=== PATIENT | female | born 1960 | race Caucasian/White ===

== ENCOUNTER 2017-05-30 08:25 | Outpatient (CLI) | payer OTHER ==
[2017-05-30 11:57] LABS: BASOPHILS # (AUTO) 0.1 10^3/uL (0.0-0.1); EOSINOPHILS # (AUTO) 0.1 10^3/uL (0.0-0.7); EOSINOPHILS % (AUTO) 2.1 %; HGB - HEMOGLOBIN 13.5 g/dL (12.0-16.0); LYMPHOCYTES # (AUTO) 1.8 10^3/uL (1.5-3.5); LYMPHOCYTES % (AUTO) 31.1 %; MEAN CORPUSCULAR HEMOGLOBIN 30.2 pg (27.0-31.0); MEAN CORPUSCULAR HGB CONC 33.9 g/dL (32.0-36.0); MEAN PLATELET VOLUME 8.6 fL (7.9-10.8); MONOCYTES # (AUTO) 0.4 10^3/uL (0.0-1.0); MONOCYTES % (AUTO) 6.3 %; NEUTROPHILS # (AUTO) 3.4 10^3/uL (1.5-6.6); NEUTROPHILS % (AUTO) 59.5 %; PLT - PLATELET COUNT 288 10^3/uL (130-450); RED BLOOD COUNT 4.49 10^6/uL (4.20-5.40); RED CELL DISTRIBUTION WIDTH 12.6 % (12.0-15.0); WHITE BLOOD COUNT 5.8 x10^3/uL (4.8-10.8)
[2017-05-30 12:23] LABS: % IRON SATURATION 21 % (20-50); ALBUMIN 4.5 g/dL (3.2-5.5); ALBUMIN/GLOBULIN RATIO 1.7 (1.0-2.2); ALKALINE PHOSPHATASE 79 IU/L (42-121); ALT ALANINE AMINOTRANSFERASE 16 IU/L (10-60); AST ASPARTATE AMINOTRANSFERASE 23 IU/L (10-42); BILIRUBIN,TOTAL 0.7 mg/dL (0.2-1.0); BUN - BLOOD UREA NITROGEN 16 mg/dL (6-20); CARBON DIOXIDE - CO2 27 mmol/L (21-32); CHLORIDE 102 mmol/L (101-111); CHOL/HDL RATIO 3.6 (<4.4); CHOLESTEROL 265 mg/dL; GFR - MDRD 57 (>89); GLUCOSE 88 mg/dL (70-100); HDL CHOLESTEROL 74 mg/dL; IRON 80 ug/dL (28-170); LDL CHOLESTEROL,CALCULATED 167 mg/dL; LDL/HDL RATIO 2.3 (<4.4); SODIUM 136 mmol/L (135-145); TOTAL IRON BINDING CAPACITY 377 ug/dL (250-450); TOTAL PROTEIN 7.2 g/dL (6.7-8.2); TRANSFERRIN 269 mg/dL (192-382); VLDL CHOLESTEROL 24 mg/dL
[2017-05-30 12:24] LABS: THYROID STIMULATING HORMONE 1.82 uIU/mL (0.34-5.60)
== END 2017-05-30 08:26 | disposition home or self-care (01) ==
LOC: LAB.F 08:25
PROVIDERS: ATTEND Nurse Practitioner Family
DX: G43.909 Migraine, unspecified, not intractable, without status migrainosus (principal); Z13.6 Encounter for screening for cardiovascular disorders
CPT/HCPCS: 36415; 80053; 80061; 82607; 83540; 83721; 84443; 84466; 85025

== ENCOUNTER 2017-10-22 08:47 | Outpatient (CLI) | payer OTHER ==
[2017-10-22 18:14] LABS: CHOL/HDL RATIO 2.8 (<4.4); CHOLESTEROL 201 mg/dL; HDL CHOLESTEROL 72 mg/dL; LDL CHOLESTEROL,CALCULATED 112 mg/dL; LDL/HDL RATIO 1.6 (<4.4); VLDL CHOLESTEROL 17 mg/dL
== END 2017-10-22 08:48 | disposition home or self-care (01) ==
LOC: LAB.F 08:47
PROVIDERS: ATTEND Family Medicine
DX: E78.5 Hyperlipidemia, unspecified (principal); Z78.9 Other specified health status; R20.2 Paresthesia of skin; G43.109 Migraine with aura, not intractable, without status migrainosus
CPT/HCPCS: 36415; 80061; 82306; 82607; 83721